=== PATIENT | male | born 1960 | race Caucasian/White ===

== ENCOUNTER 2017-08-26 09:16 | Emergency (ER) | payer OTHER ==
[2017-08-26 09:35] VITALS: BP 124/87; PULSE 90; TEMP 98.2; BMI 29.0
--- NOTE | 2017-08-26 10:22 | PDOC ---
History of Present Illness - General Chief Complaint: Back Pain Stated Complaint: RT LEG PAIN Time Seen by Provider: 08/26/17 10:15 History Source: Patient Exam Limitations: No Limitations - History of Present Illness Initial Comments: 08/26/17 10:21 CHIEF COMPLAINT: [Lower back pain] HISTORY OF PRESENT ILLNESS: Patient is a 57-year-old male, no significant medical history currently on no medication presents with lower back pain dating down bilateral legs, patient with recent MRI that demonstrated herniated disks. Patient has an appointment today with Dr. carroll notes shock at 2:30 PM. Is requesting pain medication., no neurosensory deficits, no bowel or bladder difficulty incontinence or urinary retention, no saddle anesthesia, no footdrop. No history of IVDU or history of cancer. ] REVIEW OF SYSTEMS: GENERAL: Afebrile, denies any weakness RESPIRATORY: No cough, wheezing, or hemoptysis. CARDIAC: No chest pain or shortness of breath MUSCULOSKELETAL: Pain to generalized lower back. No point tenderness. SKIN : No erythema, no bruising, no deformity. GI/: Denies any abdominal pain, no urinary difficulty, incontinence or urinary retention. RECTAL: Denies any difficulty this A.m. NEUROLOGICAL: Denies any numbness or tingling. No neurosensory deficits. PHYSICAL EXAM: GENERAL: The patient is awake, alert, and fully oriented, in no acute distress. RESPIRATORY: Lungs clear bilaterally, no rhonchi wheezes or crackles CARDIAC: S1-S2 audible, no murmur rub or gallop MUSCULOSKELETAL: Pain to generalized lower back, radiating down bilateral legs with no tingling or sensory deficit. Less than 2 second cap refill, +4 popliteal and pedal pulses. GI/: Abdomen soft, nontender, nondistended. No rebound tenderness. No masses palpable. MUSCULOSKELETAL: No spinal point tenderness. Normal reflexive and no deficits to sensation or strength. RECTAL:[Normal Rectal Tone]. SKIN: Warm, Dry, normal turgor, no erythema, no edema no bruising. 08/26/17 10:44 Past History - Past Medical History Allergies/Adverse Reactions: Allergies Allergy/AdvReac Type Severity Reaction Status Date / Time No Known Allergies Allergy Verified 08/26/17 09:32 Home Medications: Ambulatory Orders Multivitamin [Poly-Vitamin] 1 each PO DAILY 10/02/15 Ondansetron HCl [Zofran] 4 mg PO Q8H #15 tablet 10/02/15 Methylprednisolone [Medrol Dose Cristopher] 4 mg PO ASDIR #21 tablet 08/26/17 Oxycodone HCl/Acetaminophen [Percocet 5-325 mg Tablet] 1 - 2 tab PO Q6H #20 tab MDD 8 08/26/17 COPD: No Other medical history: DENIES. - Suicide/Smoking/Psychosocial Hx Smoking History: Former smoker Have you smoked in the past 12 months: No Number of Cigarettes Smoked Daily: 2 If you are a former smoker, when did you quit?: 2006 Information on smoking cessation initiated: No Hx Alcohol Use: No Drug/Substance Use Hx: No Substance Use Type: None *Physical Exam - Vital Signs Last Vital Signs Temp Pulse Resp BP Pulse Ox 98.2 F 90 18 124/87 96 08/26/17 09:32 08/26/17 09:32 08/26/17 09:32 08/26/17 09:32 08/26/17 09:32 Medical Decision Making - Medical Decision Making 08/26/17 10:45 A/P: Patient with lower back pain, spoke to Dr. Talbert will see patient at 2:30 today will give Toradol injection, Medrol Dosepak, Percocet for severe pain and follow up with [facility] today at 2:30 pm. 08/26/17 11:17 *DC/Admit/Observation/Transfer Diagnosis at time of Disposition: Pain in lower back Qualifiers: Chronicity: acute Back pain laterality: bilateral Sciatica presence: with sciatica Sciatica laterality: bilateral sciatica Qualified Code(s): M54.42 - Lumbago with sciatica, left side - Discharge Dispostion Disposition: HOME Condition at time of disposition: Stable Admit: No - Prescriptions Prescriptions: Methylprednisolone [Medrol Dose Cristopher] 4 mg PO ASDIR #21 tablet Oxycodone HCl/Acetaminophen [Percocet 5-325 mg Tablet] 1 - 2 tab PO Q6H #20 tab MDD 8 - Referrals Referrals: Shimon Ma MD [Primary Care Provider] - Luis Daniel Talbert MD [Staff Physician] - Filiberto Edmondson MD [Staff Physician] - - Patient Instructions Printed Discharge Instructions: DI for Low Back Pain Additional Instructions: 1. Please return to the emergency department with any numbness, tingling, weakness, numbness or tingling to groin or legs, or loss of bowel or bladder function. 2. Use pain medication as ordered. 3. Please is to followup in the office of Dr. Faulkner for evaluation within a week if no improvement. 4. Ice or heat 5. Refrain from lifting anything above 10 pounds, until pain resolved. - Post Discharge Activity Forms/Work/School Notes: Back to Work
[2017-08-26] MEDS ORDERED: KETOROLAC TROMETHAMINE 60 MG/2 ML VIAL IM ONE (10:30)
[2017-08-26] MEDS ORDERED: KETOROLAC TROMETHAMINE 60 MG/2 ML VIAL ONE (10:34)
== END 2017-08-26 10:51 | disposition home or self-care (01) ==
LOC: JERFT 09:16
PROC: 3E0233Z Introduction of Anti-inflammatory into Muscle, Percutaneous Approach (ICD-10-PCS; principal; 2017-08-26)
DX: M54.42 Lumbago with sciatica, left side (principal); Z87.891 Personal history of nicotine dependence
CPT/HCPCS: 99281-25

== ENCOUNTER 2017-09-02 07:02 | Day surgery (SDC) | payer OTHER ==
[2017-08-29 17:18] VITALS: BMI 29.0
[2017-09-02 07:30] VITALS: TEMP 98
[2017-09-02] MEDS ORDERED: MIDAZOLAM HCL 2 MG/2 ML SINGLE DOSE VIAL ONE (08:19)
[2017-09-02] MEDS ORDERED: PROPOFOL 20 ML ONE (08:19)
[2017-09-02] MEDS ORDERED: LIDOCAINE HCL 1%, 10 MG/ML (20ML VIAL) ONE (08:22)
[2017-09-02] MEDS ORDERED: methylPREDNISolone ACET (DEPO) 40 MG/1 ML VIAL ONE (08:22)
[2017-09-02] MEDS ORDERED: BETAMET ACET/BETAMET NA PH 30 MG/5 ML VIAL ONE ×2 (08:22→09:06)
[2017-09-02] MEDS ORDERED: BUPIVACAINE HCL/PF 0.25% (2.5MG/ML) 10 ML VIAL ONE (08:22)
[2017-09-02] MEDS ORDERED: BETAMET ACET/BETAMET NA PH 30 MG/5 ML VIAL IJ ONE (09:13)
[2017-09-02] MEDS ORDERED: IOHEXOL 180 MG/1 ML ML IJ ONE (09:13)
[2017-09-02] MEDS ORDERED: LIDOCAINE HCL 1%, 10 MG/ML (50 mL VIAL) IJ ONE (09:13)
[2017-09-02] MEDS ORDERED: BUPIVACAINE HCL/PF 0.25% (2.5MG/ML) 10 ML VIAL IJ ONE (09:13)
[2017-09-02] MEDS ORDERED: oxyCODONE HCL 5 MG TABLET PO ONE ×2 (09:50→10:00)
[2017-09-02] MEDS ORDERED: oxyCODONE HCL 5 MG TABLET ONE (09:59)
[2017-09-02 10:45] VITALS: BP 133/86; PULSE 87
--- NOTE | 2017-09-02 11:53 | PROC ---
Procedure Note Procedure: Date of service: 09/02/2017 Preoperative Diagnosis: Low back pain and lumbar radiculopathy on Left Postoperative Diagnosis: Same Procedure Performed: Lumbar Epidural Steroid Injection (LESI) on Left L3-4 with dye under Fluoroscopy Anesthesia: Local / MAC Anesthesiologist: Landen Procedure: I discussed with the patient in detail about the risks, benefits, and alternatives to treatment not only limited to infection, headache, numbness , weakness, and injury to nerves, blood vessels and muscles. The patient understood, agreed and signed the written consent. The patient was placed in the prone position with the head, abdomen and legs supported with the pillows. The lumbosacral area was prepped and draped with Betadine times three in a sterile fashion. Lumbar vertebrae were identified under the C-arm. At L3-4 level on the Left side, 3 ml of 1 % Lidocaine was infiltrated into the skin and subcutaneous tissue. A 3 inch, #20 gauge Tuohy needle was advanced to the epidural space with loss of resistance technique under fluoroscopic guidance. Aspiration was negative for cerebrospinal fluid and blood. 2ml of Omnipaque ( radio-opaque dye) was injected to confirm the tip of the needle into epidural space and spread of dye. There was no CSF or vascular spread. The spread of dye was noted cranially and caudally on epidurogram. Aspiration was done again which was negative. A solution of 2.5 ml of Celestone, 2.5 ml of 0.25% Marcaine and a total of 5 ml was injected slowly. While Tuohy needle was withdrawn 2.0 ml of 1 % Lidocaine was infiltrated. Bleeding was checked. Betadine was wiped off. A sterile bandage was placed. The patient tolerated the procedure well. There were no immediate complications. The patient was transferred to the recovery room. The patient was observed for some time and discharged as per ASU criteria. The patient was told to apply ice at the injection site. Follow up appointment was given and also call my office at [phone]. If there is any problem, call my office or report to Emergency Room. Luis Daniel Talbert M.D.
[2017-09-02] MEDS ORDERED: oxyCODONE HCL 5 MG TABLET PO PRN (12:13)
[2017-09-02] MEDS ORDERED: ONDANSETRON 4 MG/2 ML VIAL IVPUSH PRN (12:13)
[2017-09-02] MEDS ORDERED: ACETAMINOPHEN 325 MG TABLET (FP) PO PRN (12:13)
[2017-09-02] MEDS ORDERED: LACTATED RINGERS SOLUTION 1,000 ML IV SCH (12:15)
== END 2017-09-02 10:55 | disposition home or self-care (01) ==
LOC: JASU-SURG 07:02
PROVIDERS: ATTEND Physical Medicine & Rehabilitation
PROC: 3E0R33Z Introduction of Anti-inflammatory into Spinal Canal, Percutaneous Approach (ICD-10-PCS; 2017-09-02)
PROC: B01BYZZ Fluoroscopy of Spinal Cord using Other Contrast (ICD-10-PCS; 2017-09-02)
PROC: 3E0R3BZ Introduction of Anesthetic Agent into Spinal Canal, Percutaneous Approach (ICD-10-PCS; principal; 2017-09-02 08:30)
DX: M54.16 Radiculopathy, lumbar region (principal); M54.5 Low back pain
CPT/HCPCS: 76000-TC-FY